=== PATIENT | female | born 1970 | race Caucasian/White ===

== ENCOUNTER → 2018-03-15 | Outpatient (CLI) | payer OTHER | END | disposition home or self-care (01) | LOC: HKI 14:15 | DX: M16.12 Unilateral primary osteoarthritis, left hip (principal) | CPT/HCPCS: 73502 ==

== ENCOUNTER → 2018-05-04 | Outpatient (CLI) | payer OTHER | END | disposition home or self-care (01) | LOC: HKI 14:35 | DX: Z01.818 Encounter for other preprocedural examination (principal) | CPT/HCPCS: Z7500 ==

== ENCOUNTER 2018-05-05 09:20 | Inpatient (IN) | payer OTHER ==
[~2018-05-05 09:20] MED LIST: BUPIVACAINE 0.75%/DEXT (SPINAL) 2 ML INJ; CEFAZOLIN 1 GM INJ; DEXAMETHASONE 4 MG/ML 1 ML INJ; FENTAnyl 50 MCG/ML VIAL; LIDOCAINE 2% (SDV) 5 ML INJ; METOCLOPRAMIDE 10 MG INJ; MIDAZOLAM 1 MG/ML 2 ML INJ; ONDANSETRON 4 MG INJ; PROPOFOL 20 ML; morphine SULFATE/PF (10 MG/10 ML) INJ
[2018-05-05] MEDS ORDERED: CEFAZOLIN 1 GM INJ (09:47)
[2018-05-05] MEDS: DEXAMETHASONE 4 MG/ML 1 ML INJ IV (10:03)
[2018-05-05] MEDS: ONDANSETRON 4 MG INJ IV ×4 (10:03→22:37)
[2018-05-05] MEDS: oxyCODONE (CR) 10 MG TAB [oxyCONTIN] PO (10:04)
[2018-05-05] MEDS: ACETAMINOPHEN 1000MG/100ML IV 100 ML IVPB (10:04)
[2018-05-05] MEDS: LACTATED RINGER'S 1,000 ML IV* (10:05)
[2018-05-05] MEDS ORDERED: NACL 0.9% 3 ML SYG IV (10:30)
[2018-05-05] MEDS ORDERED: DIPHENHYDRAMINE 50 MG INJ IV ×2 (10:30→11:30)
[2018-05-05] MEDS ORDERED: BETHANECHOL 25 MG TAB PO (10:30)
[2018-05-05] MEDS ORDERED: oxyCODONE 5 MG TAB PO ×3 (10:30)
[2018-05-05] MEDS ORDERED: BISACODYL 10 MG SUPP PR (10:30)
[2018-05-05] MEDS ORDERED: SENNA/DOCUSATE NA (8.6MG/50MG) TAB PO (10:30)
[2018-05-05] MEDS ORDERED: NA PHOSPHATE/BIPHOS 133 ML ENEMA PR (10:30)
[2018-05-05] MEDS ORDERED: NALOXONE (0.4 MG/ML) INJ IV ×2 (10:30→11:30)
[2018-05-05] MEDS ORDERED: MAGNESIUM HYDROXIDE 30ML CUP PO (10:30)
[2018-05-05] MEDS: POLYMYXIN/BACITRACIN 1L IRRIG (11:28)
[2018-05-05] MEDS: POLYMYXIN B 500000 UNIT INJ (11:28)
[2018-05-05] MEDS: BACITRACIN 50000 UNITS INJ (11:28)
[2018-05-05] MEDS: HIP PAIN COCKTAIL (CEFUROXIME) INJ (11:28)
[2018-05-05] MEDS ORDERED: MEPERIDINE 25 MG INJ IV (11:30)
[2018-05-05] MEDS ORDERED: ZOLPIDEM 5 MG TAB PO (11:30)
[2018-05-05] MEDS ORDERED: HYDROmorphONE 1 MG/5 ML IV SYRINGE IV ×3 (11:30)
[2018-05-05] MEDS ORDERED: ONDANSETRON 4 MG INJ IV (11:30)
[2018-05-05] MEDS ORDERED: FENTAnyl 50 MCG/ML VIAL IV ×2 (11:30)
[2018-05-05] MEDS ORDERED: HYDROmorphONE 0.5 MG/0.5 ML SYG IV ×2 (11:30)
[2018-05-05] MEDS: CEFAZOLIN 1 GM/50 ML (PMX) 50 ML IVPB ×2 (13:49→22:23)
[2018-05-05] MEDS: DOCUSATE SODIUM 100 MG CAP PO (13:50)
[2018-05-05] MEDS: ASPIRIN (EC) 325 MG TAB PO ×2 (13:51→20:20)
[2018-05-05] MEDS: SOD CHLORIDE 0.9% 1,000 ML IV ×3 (18:31→22:33)
[2018-05-05] MEDS: TRANEXAMIC ACID 1,000 MG in NS 100 ML PRE-OP X1 IVPB (19:45)
[2018-05-05] MEDS: TRANEXAMIC ACID 1,000 MG in NS 100 ML INTRA-OP X1 IVPB (19:45)
[2018-05-05] MEDS: LANSOPRAZOLE 30 MG CAP PO (19:45)
[2018-05-05] MEDS: CEFAZOLIN 2 GM/50 ML (PMX) 50 ML IVPB (19:45)
[2018-05-05] MEDS: GABAPENTIN 100 MG CAP PO (20:20)
[2018-05-05] MEDS: DIPHENHYDRAMINE 50 MG INJ IV (22:37)
[2018-05-06] MEDS: PANTOPRAZOLE (EC) 40 MG TAB PO (06:18)
[2018-05-06] MEDS: SOD CHLORIDE 0.9% 1,000 ML IV (06:18)
[2018-05-06] MEDS: CEFAZOLIN 1 GM/50 ML (PMX) 50 ML IVPB (06:18)
[2018-05-06] MEDS: ONDANSETRON 4 MG INJ IV (06:19)
[2018-05-06] MEDS: MELOXICAM 7.5 MG TAB PO (08:41)
[2018-05-06] MEDS: CHOLECALCIFEROL 1,000 UNIT TAB PO (08:41)
[2018-05-06] MEDS: MULTIVITAMINS/MINERALS TAB PO (08:41)
[2018-05-06] MEDS: ASPIRIN (EC) 325 MG TAB PO (08:41)
[2018-05-06] MEDS: VALACYCLOVIR 500 MG TAB PO (08:41)
[2018-05-06] MEDS: FISH OIL 1,000 MG CAP PO (08:42)
[2018-05-06] MEDS: GABAPENTIN 100 MG CAP PO (08:42)
[2018-05-06] MEDS: FERROUS FUMARATE (SR) TAB PO (08:42)
[2018-05-06] MEDS: DOCUSATE SODIUM 100 MG CAP PO (08:42)
[2018-05-06] MEDS ORDERED: PRASTERONE 25 MG PO (09:00)
[2018-05-06] MEDS ORDERED: CELECOXIB 200 MG CAP PO (09:00)
[2018-05-06 11:39] LABS: ADD MAN DIFF? NO
[2018-05-06 11:46] LABS: BASOPHILS % 0.2 % (0.0-2.0); HEMATOCRIT 25.2 % (37.0-47.0); HEMOGLOBIN 8.6 g/dl (12.0-16.0); LYMPHOCYTES # 0.9 10^3/ul (0.8-2.9); LYMPHOCYTES % 9.5 % (15.0-51.0); MEAN CORPUSCULAR HEMOGLOBIN 36.4 pg (29.0-33.0); MEAN CORPUSCULAR HGB CONC 34.1 g/dl (32.0-37.0); MEAN CORPUSCULAR VOLUME 106.8 fl (82.0-101.0); MEAN PLATELET VOLUME 9.2 fl (7.4-10.4); MONOCYTE # 0.9 10^3/ul (0.3-0.9); NEUTROPHIL # 7.7 10^3/ul (1.6-7.5); NEUTROPHILS % 80.9 % (39.0-77.0); PLATELET COUNT 184 10^3/UL (140-415); RED BLOOD COUNT 2.36 10^6/ul (4.20-5.40); RED CELL DISTRIBUTION WIDTH 12.7 % (11.5-14.5)
[2018-05-06 11:46] LABS: WHITE BLOOD COUNT 9.5 10^3/ul (4.8-10.8)
[2018-05-06 12:07] LABS: ANION GAP 10 (8-16); BLOOD UREA NITROGEN 8 mg/dl (7-20); CALCIUM 8.6 mg/dl (8.4-10.2); CARBON DIOXIDE 27 mmol/L (21-31); CHLORIDE 95 mmol/L (97-110); CREATININE 0.59 mg/dl (0.44-1.00); GLUCOSE 103 mg/dl (70-220); POTASSIUM 4.3 mmol/L (3.5-5.1); SODIUM 128 mmol/L (135-144)
== END 2018-05-06 15:41 | disposition home health service (06) | DRG 470 ==
LOC: REC 09:20 → MS1 15:20
PROC: 0SRB04A Replacement of Left Hip Joint with Ceramic on Polyethylene Synthetic Substitute, Uncemented, Open Approach (ICD-10-PCS; principal; 2018-05-05 10:47)
DX: M16.12 Unilateral primary osteoarthritis, left hip (principal); B00.9 Herpesviral infection, unspecified; R00.1 Bradycardia, unspecified
CPT/HCPCS: 72170; 73500; 73530; 80048; 85025; 86850; 86900; 86901; 86920; 88304; 88311; 97110; 97116; 97161; 97166; 97530

== ENCOUNTER → 2018-05-18 | Outpatient (CLI) | payer OTHER | END | disposition home or self-care (01) | LOC: HKI 14:36 | DX: Z47.1 Aftercare following joint replacement surgery (principal); Z96.642 Presence of left artificial hip joint | CPT/HCPCS: 73502 ==

== ENCOUNTER → 2018-06-14 | Outpatient (CLI) | payer OTHER | END | disposition home or self-care (01) | LOC: HKI 14:13 | DX: Z47.1 Aftercare following joint replacement surgery (principal); Z96.642 Presence of left artificial hip joint | CPT/HCPCS: 73502 ==

== ENCOUNTER → 2018-08-03 | Outpatient (CLI) | payer OTHER | END | disposition home or self-care (01) | LOC: HKI 14:56 | DX: T84.021D Dislocation of internal left hip prosthesis, subsequent encounter (principal); W19.XXXD Unspecified fall, subsequent encounter | CPT/HCPCS: 73502 ==

== ENCOUNTER → 2018-08-16 | Outpatient (CLI) | payer OTHER | END | disposition home or self-care (01) | LOC: HKI 10:18 | DX: Z47.1 Aftercare following joint replacement surgery (principal); M51.26 Other intervertebral disc displacement, lumbar region; M54.16 Radiculopathy, lumbar region; Z96.642 Presence of left artificial hip joint | CPT/HCPCS: 73502 ==

== ENCOUNTER → 2018-10-05 | Outpatient (CLI) | payer OTHER | END | disposition home or self-care (01) | LOC: HKI 15:07 | DX: Z47.1 Aftercare following joint replacement surgery (principal); Z96.642 Presence of left artificial hip joint | CPT/HCPCS: 73502 ==